=== PATIENT | male | born 1985 | race Hispanic/Latino ===

== ENCOUNTER 2017-09-24 14:21 | Emergency (ER) | payer SELFPAY ==
[2017-09-24 15:18] LABS: BASOPHILS % (AUTO) 0.5 % (0.0-5.0); EOSINOPHILS % (AUTO) 1.4 % (0.0-8.0); HEMATOCRIT 39.7 % (42-54); LYMPHOCYTES % (AUTO) 18.4 % (21.0-51.0); MEAN CORPUSCULAR HEMOGLOBIN 29.6 pg (27.0-33.0); MEAN CORPUSCULAR HGB CONC 34.9 g/dL (32.0-36.0); MEAN CORPUSCULAR VOLUME 84.8 fL (79-99); MONOCYTES % (AUTO) 8.3 % (3.0-13.0); NEUTROPHILS % (AUTO) 71.4 % (40.0-77.0); PLATELET COUNT (AUTO) 360 K/uL (130-400); RED BLOOD CELL COUNT(AUTO) 4.68 MIL/uL (4.50-6.20); RED CELL DISTRIBUTION WIDTH 12.9 % (11.0-15.5); WHITE BLOOD COUNT (AUTO) 5.7 K/uL (4.8-10.8)
[2017-09-24 15:30] LABS: CREATININE 1.1 mg/dL (0.5-1.5); POTASSIUM 4.1 mmol/L (3.5-5.1)
[2017-09-24 15:33] LABS: INR 0.9 (0.85-1.15); PARTIAL THROMBOPLASTIN TIME 23.8 SEC (26.3-35.5); PROTHROMBIN TIME 9.5 SEC (9.6-11.6)
[2017-09-24 15:34] LABS: ALBUMIN 3.5 g/dL (3.5-5.0); BILIRUBIN,DIRECT 0.1 mg/dL (0.0-0.3); BILIRUBIN,TOTAL 0.2 mg/dL (0.2-1.0); TOTAL PROTEIN, SERUM 6.9 g/dL (6.0-8.3)
== END 2017-09-24 15:53 | disposition home or self-care (01) ==
LOC: EDH 14:21
DX: K64.8 Other hemorrhoids (principal)
CPT/HCPCS: 36415; 80048; 80076; 85025; 85610; 85730